=== PATIENT | female | born 1985 | race Caucasian/White ===

== ENCOUNTER 2020-04-19 12:48 | Outpatient (RCR) | payer MEDICARE, SELFPAY | END 2020-05-11 23:59 | disposition home or self-care (01) | LOC: SPT 12:48 | PROVIDERS: PCP Nurse Practitioner Family; Referring Provider Nurse Practitioner Family; Visit Provider Nurse Practitioner Family | DX: R32 Unspecified urinary incontinence (principal) | CPT/HCPCS: 97110; 97161; 97530 ==

== ENCOUNTER 2020-05-12 06:00 | Outpatient (RCR) | payer MEDICARE, MEDICAID, SELFPAY | END 2020-06-10 23:59 | disposition home or self-care (01) | LOC: SPT 06:00 | PROVIDERS: PCP Nurse Practitioner Family; Referring Provider Nurse Practitioner Family; Visit Provider Nurse Practitioner Family | DX: R32 Unspecified urinary incontinence (principal) | CPT/HCPCS: 97110 ==

== ENCOUNTER → 2021-04-19 15:21 | Outpatient (BNVA) | payer MEDICARE, MEDICAID, SELFPAY | PROVIDERS: PCP Nurse Practitioner Family; Visit Provider Nurse Practitioner Family | DX: Z13.6 Encounter for screening for cardiovascular disorders (principal); I10 Essential (primary) hypertension; Z79.899 Other long term (current) drug therapy; E55.9 Vitamin D deficiency, unspecified | CPT/HCPCS: 80053; 80061; 81003; 82306; 83036; 84443; 85025 ==

== ENCOUNTER → 2021-12-21 13:19 | Outpatient (BNVA) | payer MEDICARE, MEDICAID, SELFPAY | PROVIDERS: PCP Nurse Practitioner; Visit Provider Nurse Practitioner | DX: Z34.90 Encounter for supervision of normal pregnancy, unspecified, unspecified trimester (principal); N92.6 Irregular menstruation, unspecified | CPT/HCPCS: 81000; 84443; 85025 ==

== ENCOUNTER → 2022-01-19 14:46 | Outpatient (BNVA) | payer MEDICARE, MEDICAID, SELFPAY | PROVIDERS: PCP Nurse Practitioner; Visit Provider Nurse Practitioner Women's Health | DX: O09.892 Supervision of other high risk pregnancies, second trimester (principal); O09.522 Supervision of elderly multigravida, second trimester; O09.212 Supervision of pregnancy with history of pre-term labor, second trimester; Z3A.20 20 weeks gestation of pregnancy; O26.892 Other specified pregnancy related conditions, second trimester; R32 Unspecified urinary incontinence | CPT/HCPCS: 76805; 80307; 81025; 84315; 85027; 86592; 86762; 86803; 86850; 86900; 87086; 87340; 87491; 87591; 87624; 87661; 87806 ==

== ENCOUNTER → 2022-02-19 13:49 | Outpatient (BNVA) | payer MEDICARE, MEDICAID, SELFPAY | PROVIDERS: PCP Nurse Practitioner; Visit Provider Nurse Practitioner Women's Health | DX: O09.90 Supervision of high risk pregnancy, unspecified, unspecified trimester (principal); Z3A.00 Weeks of gestation of pregnancy not specified; Z79.899 Other long term (current) drug therapy | CPT/HCPCS: 76817; 82950; 84315 ==

== ENCOUNTER → 2022-02-27 12:17 | Outpatient (BNVA) | payer MEDICARE, MEDICAID, SELFPAY | PROVIDERS: PCP Nurse Practitioner; Visit Provider Obstetrics & Gynecology | DX: Z34.80 Encounter for supervision of other normal pregnancy, unspecified trimester (principal) | CPT/HCPCS: 76817 ==

== ENCOUNTER → 2022-03-16 12:30 | Outpatient (BNVA) | payer MEDICARE, MEDICAID, SELFPAY | PROVIDERS: PCP Nurse Practitioner; Visit Provider Obstetrics & Gynecology | DX: Z36.86 Encounter for antenatal screening for cervical length (principal); Z79.899 Other long term (current) drug therapy | CPT/HCPCS: 76817; 84315; 87086 ==

== ENCOUNTER → 2022-04-13 15:59 | Outpatient (BNVA) | payer MEDICARE, MEDICAID, SELFPAY | PROVIDERS: PCP Nurse Practitioner; Visit Provider Nurse Practitioner Women's Health | DX: O09.90 Supervision of high risk pregnancy, unspecified, unspecified trimester (principal); O09.529 Supervision of elderly multigravida, unspecified trimester; O09.30 Supervision of pregnancy with insufficient antenatal care, unspecified trimester; Z3A.00 Weeks of gestation of pregnancy not specified | CPT/HCPCS: 84315; 85025 ==

== ENCOUNTER 2022-04-27 01:25 | Outpatient (CLI) | payer MEDICARE, MEDICAID, SELFPAY ==
[2022-04-27] VITALS (8 sets, daily range): BP systolic 104–113; BP diastolic 64–69; PULSE 63–82; RESP 16; BMI 23.8
--- NOTE | 2022-04-27 02:03 | PC.NURSE ---
This nurse at bedside at this time. Asked when contractions began and pt stated at 2300 last night and she did not drink any water or take any Tylenol prior to coming to the hospital. This nurse inquired about where the pain is and for the pt to rate her pain on a scale of zero to ten. Pt states her pain comes and goes above her right hip and rates it 0/10. This nurse asked if the pt was having pain and she replied yes and again rated it 0/10. She also stated her stomach felt like a basketball on the drive to the hospital. This nurse updated pt on plan of care and pt didn't have any questions.
[2022-04-27 02:04] LABS: Bilirubin Urine Neg (Negative); Blood Urine Neg (Negative); Glucose Urine UA Norm (Normal); Ketones Urine 1+ (Negative); Leukocyte Esterase Urine 2+ (Negative); Nitrate Urine Negative (Negative); Protein Urine Neg (Negative); Urine Appearance Clear (CLEAR); Urine Color Yellow (Yellow); Urobilinogen Urine Norm (Negative); pH Urine 6 (5-7)
[2022-04-27 02:29] LABS: Bacteria Urine 2+ /hpf; RBC Urine 0-4 /hpf (0-2); Squamous Epithelial Cell Urine 40-55 /hpf (0-5)
[2022-04-27] MEDS: lactated ringers 1,000 ML 75 ML IV (02:44)
[2022-04-27] MEDS: ceFAZolin 2,000 MG in sodium chloride 0.9% (plus) 50 ML 100 MG IV (02:45)
--- NOTE | 2022-04-27 03:36 | P.TNLD_ITS ---
OB L&D Triage Visit Information: Date of evaluation: 04/27/22 Comments/Additional reason(s) for visit: 36yo female at 34.2 wk IUP with JUDE 06/06/22 in c/o riht side pain onset 2300 on 04/26/22. States abdomen tightens up but denies contractions. Pt admits to good FM, denies LOF or vaginal bleeding. Discussed labor and contractions. EFM-Cat 1 with irreg contractions, Cervix closed/th/high. UA- +Seth Esterase, +1 ketones, +2 Bacteria, pt treated for UTI and encouraged to increase fluids. Pt states she has visit today. Advised her to tell DrLoulou she was treated today for UTI. Evaluation: monitor accelerations: Present 15x15 station: -4 Laboratory results: Laboratory Tests 04/27/22 01:50 Urine Color Yellow Urine Appearance Clear Urine pH 6 Ur Specific Gravit y 1.020 Urine Protein Neg Urine Glucose (UA) Norm Urine Ketones 1+ H Urine Blood Neg Urine Nitrate Negative Urine Bilirubin Neg Urine Urobilinogen Norm Ur Leukocyte Cecille ase 2+ H Urine RBC 0-4 H Urine WBC 5-10 H Ur Squamous Epith Cells 40-55 H Amorphous Sediment Not Reportable Urine Bacteria 2+ H Vital signs: Vital Signs - 24 hr 04/27/22 01:25 04/27/22 01:25 04/27/22 01:46 Pulse Rate 82 Respiratory Rate 16 16 Blood Pressure 108/66 04/27/22 02:03 04/27/22 02:18 04/27/22 02:34 Pulse Rate 75 63 68 Respiratory Rate Blood Pressure 107/67 108/69 112/64 04/27/22 02:48 04/27/22 03:03 04/27/22 03:18 Pulse Rate 70 64 76 Respiratory Rate Blood Pressure 113/67 107/68 104/67 Care JUDE Calculator Estimated Delivery Date Method Current WG Current Estimate 06/06/22 Ultrasound #1 34w 2d Other Estimates 06/22/22 LMP (Uncertain) 32w 0d Specific Issues/Plans * LATE CARE at 20 wks * UNKNOWN LMP * HX PPROM at 28-30 weeks; delivered at 28-30 weeks * URINARY INCONTINENCE Final Diagnosis Final Diagnosis (1) Late care affecting : Plan: A. 34.2 wk IUP with irreg contractions UTI P. IV hydration with 2gm Ancef DC to home, and pt to keep apptmt. Status: Acute Code(s): O09.30 - Supervision of with insufficient care, unspecified trimester (2) History of premature rupture of membranes (PROM) in previous , currently : Status: Acute Code(s): O09.299 - Supervision of with other poor reproductive or obstetric history, unspecified trimester (3) Supervision of high-risk : Status: Acute Code(s): O09.90 - Supervision of high risk , unspecified, unspecified trimester Coding Level of Care Code Acute Code for Chg Fwd Diagnoses Late care affecting O09.30 History of premature rupture of membranes (PROM) in previous , currently O09.299 Supervision of high-risk O09.90
== END 2022-04-27 03:29 | disposition home or self-care (01) ==
LOC: OPOB 01:38 → OBGYN 01:38
PROVIDERS: PCP Nurse Practitioner; Visit Provider Obstetrics & Gynecology
DX: O09.30 Supervision of pregnancy with insufficient antenatal care, unspecified trimester (principal); Z3A.34 34 weeks gestation of pregnancy
CPT/HCPCS: 12345; 59025; 81001; 84315; 99211; J0690; J7120

== ENCOUNTER 2022-05-03 00:55 | Inpatient (IN) | payer MEDICARE, MEDICAID, SELFPAY ==
[2022-05-03] VITALS (49 sets, daily range): BP systolic 86–136; BP diastolic 52–78; PULSE 66–107; RESP 15–18; TEMP 36.3–36.9; O2SAT 94–95
[2022-05-03 01:19] LABS: Nitrazine Paper, PH Positive
[2022-05-03 01:26] LABS: Basophils % 0.4 %; Eosinophils # 0.1 10^3/uL (0.0-0.8); Eosinophils % 0.9 %; Hematocrit 35.4 % (37.0-47.0); Hemoglobin 11.7 g/dL (11.5-15.3); Lymphocytes # 1.8 10^3/uL (0.8-4.8); Lymphocytes % 18.7 %; Mean Corpuscular HGB Conc 33.1 g/dL (30.0-36.0); Mean Corpuscular Hemoglobin 28.9 pg (28.0-34.0); Mean Corpuscular Volume 87.4 fl (81-99); Mean Platelet Volume 10.4 fL (7.4-10.4); Monocytes # 0.8 10^3/uL (0.2-0.9); Monocytes % 8.4 %; Neutrophils # 6.65 10^3/uL (1.8-7.7); Neutrophils % 70.6 %; Nucleated Red Blood Cells % 0 %; Platelet Count 279 10^3/cmm (130-400); Red Blood Count 4.05 10^6/uL (4.1-5.3); Red Cell Distribution Width 12.8 % (12.1-15.1); White Blood Count 9.4 10^3/uL (4.0-10.0)
[2022-05-03] MEDS: dextrose 5%-lactated ringers 1,000 ML 125 ML IV (01:54)
[2022-05-03] MEDS: ampicillin 2,000 MG in sodium chloride 0.9% (plus) 50 ML 100 MG IV (01:54)
[2022-05-03] MEDS: ampicillin 1,000 MG in sodium chloride 0.9% (plus) 50 ML 100 MG IV ×2 (05:49→09:44)
--- NOTE | 2022-05-03 08:33 | PM.OPHPUD ---
Labor & Delivery H&P Update Date of Procedure: May 04, 2022 Date H&P Performed: 04/27/22 H&P update information: I have reviewed H&P completed within last 30 days, I have examined patient prior to procedure and Changes to prior documentation as noted here ( premature rupture of membranes) Admission Diagnosis: Intrauterine at 35 weeks +1-day. premature rupture of membranes. labor. Planned procedure: Spontaneous vaginal delivery
[2022-05-03] MEDS: oxytocin 30 UNIT/500 ML BAG IV ×2 (08:38→09:11)
[2022-05-03] MEDS: betamethasone susp 6 mg/mL 5 mL 12 MG IM (08:38)
[2022-05-03] MEDS: fentaNYL 50 mcg/mL INJ 2mL IVP (11:43)
--- NOTE | 2022-05-03 14:36 | P.PCNOB_ITS ---
Delivery Note: Date of delivery: May 04, 2022 Pre-delivery diagnoses: Intrauterine at 35 weeks +1-day. premature rupture of membranes. labor. Procedure: Spontaneous vaginal delivery Delivering Physician: Janes Martinez MD Delivery: The patient was noted to be complete and pushing, she was placed in the dorsal lithotomy position, prepped and draped in the usual sterile fashion for a vaginal delivery. Pt. Noted NOT to have epidural anesthesia and a pudendal block was performed. At 1303 the patient delivered a viable at 35 weeks female infant weighing 2105 g with scores of 7 and 8 at one and five minutes, respectively. The vertex was delivered spontaneously over intact perineum. The patient was asked to push and the head delivered spontaneously in the ASHLEY position, over an intact perineum. A nuchal cord was checked and 1 noted, and relieved around head as necessary. The anterior shoulder delivered easily and the posterior shoulder followed. The remainder of the was easily delivered and the oropharynx and nasopharynx was bulb suctioned. The was noted to have spontaneous cry and spontaneous movement of all four extremities. The cord was clamped x 2 and cut and noted to have 2 arteries and one vein. The was passed to the mother's abdomen where nursing and customer pricing manager personnel were in attendance. Cord blood sample was then obtained. The placenta delivered intact spontaneously and the uterus was explored. 20 units of Pitocin was placed in the IV bag to firm the uterus. Examination of the cervix and vaginal vault did not reveal any lacerations. A vaginal pack was then placed. Examination of the perineum showed no lacerations were noted. The vaginal pack was then removed. The patient tolerated this procedure well, and recovered in L&D with her infant or note if taken to NICU. All sponge and needle counts were correct. History History History 3 Term 1 0 Miscarriages/Ectopic 1 Living Children 1 Coding Level of Care Code Acute Code for Chg Fwd
[2022-05-03] MEDS: ibuprofen 800 mg tablet PO ×2 (15:23→20:43)
--- NOTE | 2022-05-03 16:34 | PC.NURSE ---
[place] Hotline notified by this RN concerns of parents caring for independently at home. Mother has stated to this RN repeatedly that she cannot remember how to feed or burp infant. This RN educated parents. Mother still seems unsure of how to care for . Hotline call made for potential resources for education that parents could use to care for . ROMEL MONTERROSO
[2022-05-03] MEDS: docusate sodium 100 mg Capsule PO (20:43)
[2022-05-04 03:03] VITALS: BP 105/63; PULSE 73; RESP 16; TEMP 36.7; O2SAT 96
[2022-05-04 03:17] LABS: Hematocrit 31.9 % (37.0-47.0); Hemoglobin 10.6 g/dL (11.5-15.3); Mean Corpuscular HGB Conc 33.2 g/dL (30.0-36.0); Mean Corpuscular Hemoglobin 29.1 pg (28.0-34.0); Mean Corpuscular Volume 87.6 fl (81-99); Mean Platelet Volume 10.7 fL (7.4-10.4); Platelet Count 300 10^3/cmm (130-400); Red Blood Count 3.64 10^6/uL (4.1-5.3); Red Cell Distribution Width 12.9 % (12.1-15.1); White Blood Count 18.2 10^3/uL (4.0-10.0)
--- NOTE | 2022-05-04 07:00 | PC.NURSE ---
Shift report given to RN by Elisa MONTERROSO. Upon rounding mother questioned about why she did not go to nursery to feed or visit infant throughout night. Mother states she was tired, but did not go to sleep until 2200. Mother verbalized she was aware that she was allowed to visit infant in the nursery. Mother verbalizes understanding that she may visit infant throughout day if baby remained in nursery. ROMEL MONTERROSO
[2022-05-04 10:03] VITALS: BP 106/70; PULSE 71; RESP 15; TEMP 36.6
[2022-05-04] MEDS: prenatal vitamin Capsule 1 CAP PO (10:04)
[2022-05-04] MEDS: docusate sodium 100 mg Capsule PO (10:04)
[2022-05-04] MEDS: ibuprofen 800 mg tablet PO ×2 (10:04→15:23)
[2022-05-04 15:26] VITALS: BP 106/64; PULSE 86; RESP 16; TEMP 36.7; O2SAT 97
--- NOTE | 2022-05-04 16:52 | PC.NURSE ---
Addendum entered by Jennie Romo RN 05/04/22 16:55: 05/03/22 0700 This rn prompted patient to shower due to heavy body odor noted. Patient in shower for 45 minutes. This RN rounded to room and patient states that the shower felt nice because she has not showered in 1.5 weeks This nurse asked if patient had running water in home. Patient stated to this RN that she does, she just did not want to make herself do it. (shower) RN educated patient importance of hygiene. Patient verbalized understanding. AR RN Original Note: This rn prompted patient to shower due to heavy body odor noted. Patient in shower for 45 minutes. This RN rounded to room and patient states that the shower felt nice because she has not showered in 1.5 weeks This nurse asked if patient had running water in home. Patient stated to this RN that she does, she just did not want to make herself do it. (shower) RN educated patient importance of hygiene. Patient verbalized understanding. AR KRISS
--- NOTE | 2022-05-04 19:25 | PC.NURSE ---
During bedside report with this nurse and Jaycob Romo pt was asked if she remembered how to feed the baby a bottle when it was time. Pt responded with how to burp baby. When Jaycob Romo RN stated that is how you burp the baby, do you remember how to feed the baby? The pt, after thinking for a couple minutes said she did not remember. The pt was reeducated at that time and stated she understands.
[2022-05-04 22:20] VITALS: BP 118/64; PULSE 77; RESP 16; TEMP 36.7
[2022-05-05] VITALS (14 sets, daily range): BP systolic 92–114; BP diastolic 51–70; PULSE 62–88; RESP 15–18; TEMP 36.6–36.8; O2SAT 91–100
[2022-05-05] MEDS: famotidine 20 mg/2 mL INJ IVP (07:53)
[2022-05-05] MEDS: metoclopramide 5 mg/mL SDV 2 mL 10 MG IVP (07:53)
[2022-05-05] MEDS: citric acid-sodium citrate 30 mL UDC PO (07:53)
--- NOTE | 2022-05-05 08:01 | ANES.PREANE2 ---
Pre-Anesthetic Assessment Height/Weight: Height 1.68 m Weight 67.585 kg Temp Pulse Resp BP Pulse Ox O2 Del Method 98.0 F 84 16 114/60 97 05/05/22 05:19 05/05/22 05:19 05/05/22 05:19 05/05/22 05:19 05/04/22 15:26 05/05/22 05:19 Preop Diagnosis: vaginal delivery Tubal Ligation Familial anesthetic complications: None Was Beta Theresa taken within 24 hours: N/A Was Clonidine taken within 24 hours: N/A Last intake: > 8hrs Social No alcohol and No tobacco Exam alert, oriented x 3, clear to auscultation bilaterally and regular rate & rhythm Airway Mallampati: Class II Dentition: full Anesthetic Plan ASA status: 2 Anesthesia: General Risk of > 500 ml blood loss (7ml/kg in children): No Medications/Allergies Home Medications Medication Instructions Recorded Confirmed Last Taken Type prenat.vits,jeffery,zlt-[id number] 1 tab PO DAILY 01/19/22 05/03/22 1 Day Ago History ~05/02/22 Allergies Allergy/AdvReac Type Severity Reaction Status Date / Time No Known Allergies Allergy Verified 05/03/22 00:57 Current Medications Generic Name Dose Route Start Last Admin Trade Name Freq PRN Reason Stop Dose Admin Docusate Sodium 100 mg 05/03/22 18:00 05/04/22 22:45 Docusate Sodium 100 Mg Capsule PO Not Given BID TREY Oxytocin 30 unit in 500 mls @ 1 mls/hr 05/03/22 08:15 05/03/22 21:04 Pitocin IV Infused .Q24H TREY Titration Protocol 1 MILLIUNIT/MIN Oxytocin 30 unit in 500 mls @ 1 mls/hr 05/03/22 08:30 05/03/22 21:04 Pitocin IV Infused .Q24H TREY Titration Protocol 1 MILLIUNIT/MIN Ibuprofen 800 mg 05/03/22 15:12 05/04/22 22:45 Ibuprofen 800 Mg Tablet PO Not Given TID TREY Multivit/Folic Acid/Iron 1 cap 05/04/22 09:00 05/04/22 10:04 Vitamin Capsule PO 1 cap DAILY TREY Administration PFSH Anesthesia Medical History No pertinent past medical history neghx: htn,dm,thyroid,dvt/pe PCP: Claudia Ramos Urinary Incontinence Vitamin D deficiency Surgical History History of calculus of gallbladder (~2008) removed stones Hx of dilation and curettage (~2012) SAB Family History Grandmother Diabetes Maternal and Paternal Grandfather Diabetes Maternal and Paternal Stroke Paternal Heart disease Paternal Family/Other Cervical cancer Maternal Aunt--dx age unknown Denies family history of Colon cancer Ovarian cancer Breast cancer Hypertension Uterine cancer Female Reproductive History : 3 Data Anesthesia 05/04/22 03:00 Short CBC 05/04/22 Range/Units 03:00 WBC 18.2 H (4.0-10.0) 10^3/uL Hgb 10.6 L (11.5-15.3) g/dL Hct 31.9 L (37.0-47.0) % MCV 87.6 (81-99) fl Plt Count 300 (130-400) 10^3/cmm Cardiac Studies: No Data to Display
[2022-05-05] MEDS: lactated ringers 1,000 ML 999 ML IV (08:02)
--- NOTE | 2022-05-05 09:04 | P.OP_ITS ---
Operative Report Date of procedure: May 05, 2022 Pre-op diagnosis: Preop Diagnosis vaginal delivery Desire permanent sterilization Post-op diagnosis: Same as above Procedure done: bilateral partial salpingectomy Specimens removed/disposition: The right fallopian tube segment Surgeon: Janes Martinez MD Estimated blood loss (mL): 5 Findings: Enlarged uterus Procedure: The patient was informed of the risks and benefits of the procedure. Risks included but were not limited to bleeding, infection, and injury to internal organs. The patient was counseled on the risk of sterilization failure. The patient was informed that in the event a occurs the risk of ectopic is increased. The patient was counseled that bilateral tubal ligation is intended to be permanent and nonreversible. She was also counseled that there are nonpermanent forms of control available to her. The patient expressed understanding of the risks involved, all questions were answered, and the patient consented to the procedure. After assuring informed consent. The patient was taken to the operating room and general anesthesia administered. Time-out procedure was performed. A small, transverse, infraumbilical skin incision was made with a scalpel, and the incision was carried down through the underlying fascia until the peritoneum was identified and entered. The left fallopian tube was identified, brought into the incision and grasped with a Geneva clamp. The tube was then followed out to the fimbria. An avascular midsection of the fallopian tube was grasped with a Jamil clamp and brought into a knuckle. Using the [employer] Fine Fusion device the falopian tube was clamped, seal and cut. The specimen was sent to pathology. Excellent hemostasis was noted, and the tube was returned to the abdomen. The same procedure was performed on the opposite fallopian tube. The fascia was then closed with O-Vicryl in a single layer. The skin was closed with 3-O Monocryl in a subcuticular fashion. The patient tolerated the procedure well. Needle and sponge counts were correct times 3.
--- NOTE | 2022-05-05 10:10 | ANE.PACU2 ---
Inpatient post-anesthesia follow up: Airway intact: Yes Vital signs: Temperature 98.0 F Pulse Rate 84 Respiratory Rate 16 Blood Pressure 114/60 Pulse Oximetry 97 Oxygen Delivery Me thod Room Air Oxygen Flow Rate Fraction of Inspir ed Oxygen Hydration adequate: Yes Nausea and vomiting: No Pain level: 1 Mental status: Baseline
[2022-05-05] MEDS: HYDROcodone-acetaminophen 5-325 mg Tablet PO (14:01)
[2022-05-05] MEDS: ketorolac 30 mg/mL INJ IVP ×2 (16:00→22:40)
[2022-05-05] MEDS: docusate sodium 100 mg Capsule PO (17:11)
--- NOTE | 2022-05-06 00:55 | PC.NURSE ---
While rounding pt was found to be asleep in bed holding infant. This nurse woke pt, swaddled baby and placed in her crib at bedside. Pt was reeducated on safe sleep and verbalized understanding.
[2022-05-06 04:15] VITALS: BP 98/60; PULSE 58; RESP 16; TEMP 36.7
[2022-05-06 05:59] LABS: Hematocrit 31.3 % (37.0-47.0); Hemoglobin 9.9 g/dL (11.5-15.3); Mean Corpuscular HGB Conc 31.6 g/dL (30.0-36.0); Mean Corpuscular Hemoglobin 28.7 pg (28.0-34.0); Mean Corpuscular Volume 90.7 fl (81-99); Mean Platelet Volume 10.1 fL (7.4-10.4); Platelet Count 276 10^3/cmm (130-400); Red Blood Count 3.45 10^6/uL (4.1-5.3); Red Cell Distribution Width 13.2 % (12.1-15.1)
[2022-05-06] MEDS: prenatal vitamin Capsule 1 CAP PO (10:36)
[2022-05-06] MEDS: ibuprofen 800 mg tablet PO (10:36)
[2022-05-06] MEDS: docusate sodium 100 mg Capsule PO (10:38)
--- NOTE | 2022-05-06 11:41 | P.DS_ITS ---
Discharge Providers INDUSTRIAL WASTE TREATMENT TECHNICIAN Date of Admission: 05/03/22 00:55 Date of Discharge: 05/06/22 Attending Provider at Admission: Janes Martinez MD Attending Provider at Discharge: Janes Martinez MD Primary INDUSTRIAL WASTE TREATMENT TECHNICIAN: Janes Martinez MD Primary Care Provider: Claudia Ramos APN Reason for Visit Reason for Visit: possible srom Hospital Course Hospital Course 36-year-old with intrauterine at 35 weeks. Came to labor and delivery complaining of rupture of membranes. premature rupture of membranes was confirmed. Patient was admitted, and she rapid progress to have a spontaneous vaginal delivery without complication. and observation was uneventful. She had requested permanent sterilization. bilateral partial salpingectomy was performed. Ambulating without difficulty. Tolerating diet well. She is afebrile hemodynamically stable day 2, postoperative day 1. She was counseled regarding pelvic rest for 6 weeks (no sex, no tampons, no vaginal douches). Return to the emergency room if any fever, increased bleeding or pain. Information Peripartum Data: Infant Delivery Method: Vaginal Physical Exam Narrative: GA; alert and oriented x 3 HEENT: normal Breasts: engorged Nipples - skin intact Lungs; clear to auscultation Heart: regular rhythm, no murmurs. Abd: Appropriately tender. BS+. Uterine fundus below umbilicus. No Fundal Tenderness. Perineum: normal lochia. Extremities: no edema, no cyanosis, no tenderness. History History History 3 Term 1 0 Miscarriages/Ectopic 1 Living Children 1 Discharge Data Studies Completed and Pending Laboratory Results WBC 18.2 10^3/uL (4.0-10.0) H 05/04/22 03:00 RBC 3.64 10^6/uL (4.1-5.3) L 05/04/22 03:00 Hgb 10.6 g/dL (11.5-15.3) L 05/04/22 03:00 Hct 31.9 % (37.0-47.0) L 05/04/22 03:00 MCV 87.6 fl (81-99) 05/04/22 03:00 MCH 29.1 pg (28.0-34.0) 05/04/22 03:00 MCHC 33.2 g/dL (30.0-36.0) 05/04/22 03:00 RDW 12.9 % (12.1-15.1) 05/04/22 03:00 Plt Count 300 10^3/cmm (130-400) 05/04/22 03:00 MPV 10.7 fL (7.4-10.4) H 05/04/22 03:00 Neut % (Auto) 70.6 % 05/03/22 01:19 Lymph % (Auto) 18.7 % 05/03/22 01:19 [place] % (Auto) 8.4 % 05/03/22 01:19 Eos % (Auto) 0.9 % 05/03/22 01:19 Baso % (Auto) 0.4 % 05/03/22 01:19 Neut # (Auto) 6.65 10^3/uL (1.8-7.7) 05/03/22 01:19 Lymph # (Auto) 1.8 10^3/uL (0.8-4.8) 05/03/22 01:19 [place] # (Auto) 0.8 10^3/uL (0.2-0.9) 05/03/22 01:19 Eos # (Auto) 0.1 10^3/uL (0.0-0.8) 05/03/22 01:19 Baso # (Auto) 0.0 10^3/uL (0.0-0.1) 05/03/22 01:19 Nucleated RBC % (auto) 0 % 05/03/22 01:19 Nucleated RBCs # 0.0 /100WBC 05/03/22 01:19 Vitals Last Vital Signs Temp 97.8 F 05/04/22 10:03 Pulse 71 05/04/22 10:03 Resp 15 05/04/22 10:03 BP 106/70 05/04/22 10:03 Pulse Ox 96 05/04/22 03:03 O2 Del Method 05/04/22 10:03 Discharge Plan Discharge Patient Disposition: Home Condition: Stable Prescriptions: New hydrocodone-acetaminophen 5-325 mg tablet 1 tab PO Q4H PRN (Reason: pain) Qty: 10 0RF docusate sodium [Colace] 100 mg capsule 100 mg PO BID Qty: 60 0RF ibuprofen 800 mg tablet 800 mg PO TID PRN (Reason: pain) Qty: 60 0RF acetaminophen 325 mg capsule 325 mg PO Q4H PRN (Reason: fever or pain) Qty: 60 0RF ferrous sulfate [Iron (ferrous sulfate)] 325 mg (65 mg iron) tablet 325 mg PO BID Qty: 60 0RF Continued prenat.vits,jeffery,ytb-[id number] Tablet 1 tab PO DAILY Discharge Orders: Discharge Order (Routine); Ordered 05/06/22 Ordered By: Janes Martinez Discharge Diet: Advance as tolerated and Usual diet Discharge Activity: Limit activity as instructed Patient Instructions: Caring for Your Baby (GEN), Bleeding (GEN), Vaginal Delivery (GEN), Your [place]'s Appearance (GEN), Opioid Safety Activity Restrictions/Additional Instructions: 1. Please call [facility] on next working day to make your postop visit in 2 weeks and appointment in 6 weeks. 2. Please stay home until you come back to the clinic on first post-operative check up. 3. Please follow instructions on your medications CAREFULLY. 4. If you have abdominal incision, do not cover it unless dressing is necessary because of drainage. OK to shower, but avoid bath. Leave steri-strips until they fall off. If they are still on one week after surgery, you may remove them. 5. If you had vaginal surgery or vaginal repair, Dr. Martinez may instruct you to take SITZ bath. 6. Yellow, blood tinged odorous vaginal discharge is usually normal after hysterectomy or vaginal surgeries. 7. No sexual intercourse, tampons, or douches until you are completely released from the post-operative care. 8. Avoid constipation by eating right and maybe using some Metamucil or Milk of Magnesia. 9. All prescription refills are given during the working hours. Please do no wait till it runs out. Call the clinic at [phone] before your medication runs out. The clinic will get in touch with your doctor to prescribe medications if necessary. 10. Please remain within 40 mile radius from our hospital because emergencies do happen now and then during the post-operative period. 11. If you have stairs at home, take one step at a time slowly and minimize the number of trips. It helps to stay in one floor for the next few days. No lifting except what you can lift by one hand until you are released from the post-operative care. 12. Driving is discouraged until you are well healed. It may be 3-4 weeks before you feel strong enough to drive. You should be able to turn and look through the rear window without pain and you should be able to push the brake pedal very hard without pain before you drive. No fast rules, but SAFETY should be your primary concern. DO NOT drive if you are on sedating medications such as narcotics. 13. Call the clinic (during working hours) to make urgent appointment or go to the Emergency room, if any of the following occurs: i. Vaginal bleeding becomes heavy, more than a period. ii. Incision becomes red and sore, or drains pus. iii. Your temperature is over 100.4 or you have chill. iv. IV site becomes red and swollen (a little ``knot?? is usually OK) v. Persistent nausea and vomiting vi. Persistent constipation or diarrhea vii. Rash or allergic reaction to medications. Discharge Attestations INDUSTRIAL WASTE TREATMENT TECHNICIAN Time Spent in Discharge Care*: greater than 30 min Coding Level of Care Code Acute Code for Chg Fwd
[2022-05-06 13:45] VITALS: BP 127/72; PULSE 67; RESP 16; TEMP 36.4
== END 2022-05-06 13:45 | disposition home or self-care (01) | DRG 798 ==
LOC: OBGYN 13:18 → OPOB 05-05 06:01 → OBGYN 05-05 06:01
PROVIDERS: Admitting Provider Obstetrics & Gynecology; PCP Nurse Practitioner; Visit Provider Obstetrics & Gynecology
PROC: 0UB70ZZ Excision of Bilateral Fallopian Tubes, Open Approach (ICD-10-PCS; CPT 58605; principal; 2022-05-05 08:15)
DX: O42.013 Preterm premature rupture of membranes, onset of labor within 24 hours of rupture, third trimester (principal); Z37.0 Single live birth; O69.81X0 Labor and delivery complicated by cord around neck, without compression, not applicable or unspecified; Z30.2 Encounter for sterilization; Z3A.35 35 weeks gestation of pregnancy; Z87.891 Personal history of nicotine dependence
CPT/HCPCS: 36415; 59025; 59409; 83986; 85025; 85027; 88302; 96372; 96374; 96376; 99211; J0290; J0330; J0702; J1100; J1885; J2250; J2405; J2590; J2704; J2765; J3010; J3490; J7120; J7121

== ENCOUNTER 2022-12-11 12:24 | Observation (INO) | payer MEDICARE, MEDICAID, SELFPAY ==
[2022-12-11] VITALS (14 sets, daily range): BP systolic 95–118; BP diastolic 54–75; PULSE 44–76; RESP 12–20; TEMP 36.2–36.6; O2SAT 92–100; BMI 20.1
[2022-12-11] MEDS: sodium chloride 0.9% 1,000 ML 30 ML IV (09:41)
[2022-12-11] MEDS: scopolamine 1.5 Patch 1 PATCH TRANSDERMA (09:41)
[2022-12-11 09:47] LABS: OR HCG Qualitative Urine Negative (Negative)
--- NOTE | 2022-12-11 09:47 | W.PM.OPSUD ---
Surgery/Procedure H&P Update DATE OF PROCEDURE: December 11, 2022 DATE H&P PERFORMED: 12/03/22 H&P UPDATE INFORMATION: I have reviewed H&P completed within last 30 days, I have examined patient prior to procedure and No changes to prior documentation PREOP DIAGNOSIS: Cystocele stage II, mixed urinary incontinence PLANNED PROCEDURE: Operation Date: 12/11/22 11:05 Proposed Procedures p [id number] Anterior Colporrhaphy(Not Applicable) - Janes Martinez [place] s [id number] Single Incision Midurethral Sling(Not Applicable) - Janes Martinez MD
--- NOTE | 2022-12-11 10:13 | ANES.PREANE2 ---
Pre-Anesthetic Assessment Height/Weight: Height 1.68 m Weight 56.699 kg Temp Pulse Resp BP Pulse Ox O2 Del Method 97.4 F L 74 18 118/61 92 Room Air 12/11/22 09:34 12/11/22 09:34 12/11/22 09:34 12/11/22 09:34 12/11/22 09:34 12/11/22 09:36 Preop Diagnosis: Cystocele stage II, mixed urinary incontinence Operation Date: 12/11/22 11:05 Proposed Procedures p [id number] Anterior Colporrhaphy(Not Applicable) - Janes Martinez MD s [id number] Single Incision Midurethral Sling(Not Applicable) - Janes Martinez MD Familial anesthetic complications: None Was Beta Theresa taken within 24 hours: N/A Was Clonidine taken within 24 hours: N/A Last intake: Intake Last Liquid Date 12/10/22 Last Liquid Time 22:50 Last Solid Date 12/10/22 Last Solid Time 21:45 Social No alcohol and No tobacco Exam alert, oriented x 3, clear to auscultation bilaterally and regular rate & rhythm Airway Mallampati: Class I Dentition: full Anesthetic Plan ASA status: 1 Anesthesia: General Risk of > 500 ml blood loss (7ml/kg in children): No Medications/Allergies Home Medications Medication Instructions Recorded Confirmed Last Taken Type prenat.vits,jeffery,hfc-[id number]-vnlji 1 tab PO DAILY 01/19/22 12/11/22 12/09/22 History mirabegron 50 mg tablet,extended 50 mg PO DAILY #30 tabs 09/17/22 12/11/22 12/09/22 Rx release 24 hr (Myrbetriq) Allergies Allergy/AdvReac Type Severity Reaction Status Date / Time No Known Allergies Allergy Verified 12/11/22 09:28 Current Medications Generic Name Dose Route Start Last Admin Trade Name Freq PRN Reason Stop Dose Admin Sodium Chloride 1,000 mls @ 30 mls/hr 12/11/22 09:30 12/11/22 09:41 Sodium Chloride 0.9% IV 12/12/22 09:29 30 mls/hr .Q24H TREY Administration PFSH Anesthesia Medical History No pertinent past medical history neghx: htn,dm,thyroid,dvt/pe PCP: Claudia Ramos Urinary Incontinence Vitamin D deficiency Surgical History History of calculus of gallbladder (~2008) removed stones Hx of dilation and curettage (~2012) SAB Family History Grandmother Diabetes Maternal and Paternal Grandfather Diabetes Maternal and Paternal Stroke Paternal Heart disease Paternal Family/Other Cervical cancer Maternal Aunt--dx age unknown Denies family history of Colon cancer Ovarian cancer Breast cancer Hypertension Uterine cancer Female Reproductive History Date of last menstrual period: 12/07/22 Data Anesthesia Cardiac Studies: No Data to Display
[2022-12-11 10:15] LABS: Add Urine Microscopic? YES; Bilirubin Urine Neg (Negative); Blood Urine Neg (Negative); Glucose Urine UA Norm (Normal); Ketones Urine Negative (Negative); Leukocyte Esterase Urine Negative (Negative); Nitrate Urine Negative (Negative); Protein Urine Neg (Negative); Urine Appearance Hazy (CLEAR); Urine Color Yellow (Yellow); Urobilinogen Urine Norm (Negative); pH Urine 6 (5-7)
[2022-12-11 10:21] LABS: Add Urine Culture? No; Mucus Urine 3+ /hpf; RBC Urine RARE /hpf (0-2); WBC Urine 0-4 /hpf (0-5)
[2022-12-11] MEDS: ceFAZolin 2,000 MG in sodium chloride 0.9% (plus) 50 ML 100 MG IV (10:21)
[2022-12-11 10:25] LABS: Basophils % 0.7 %; Eosinophils # 0.1 10^3/uL (0.0-0.8); Eosinophils % 1.7 %; Hematocrit 42.6 % (36-47); Lymphocytes # 1.6 10^3/uL (0.8-4.8); Lymphocytes % 30.2 %; Mean Corpuscular HGB Conc 32.2 g/dL (30-55); Mean Corpuscular Hemoglobin 28.8 pg (27-33); Mean Corpuscular Volume 89.7 fl (85-98); Mean Platelet Volume 9.7 fL (7.4-10.4); Monocytes # 0.3 10^3/uL (0.2-0.9); Monocytes % 5.6 %; Neutrophils # 3.32 10^3/uL (1.8-7.7); Neutrophils % 61.6 %; Nucleated Red Blood Cells % 0 %; Platelet Count 344 10^3/cmm (157-399); Red Blood Count 4.75 10^6/uL (3.85-5.65); Red Cell Distribution Width 12.6 % (12.1-15.1); White Blood Count 5.39 10^3/uL (3.29-11.43)
[2022-12-11 10:45] LABS: Alanine Aminotransferase 11 U/L (0-33); Albumin Level 4.8 g/dL (3.5-5.2); Alkaline Phosphatase 76 U/L (35-105); Anion Gap 12.1 (5-19); Aspartate Amino Transferase 12 U/L (0-32); Blood Urea Nitrogen 11 mg/dL (6-20); Calcium 9.1 mg/dL (8.5-10.5); Carbon Dioxide 29 mmol/L (22-29); Chloride 103 mmol/L (98-107); Globulin 2.8 g/dL (1.3-4.6); Glomerular Filtration Rate 113.1 mL/min (90-130); Glucose 107 mg/dL (65-115); Osmolality Calculated 290 mOsm/kg (285-295); Potassium 4.1 mmol/L (3.5-5.1); Sodium 140 mmol/L (136-145); Total Bilirubin 0.4 mg/dL (0.15-1.2); Total Protein 7.6 g/dL (6.6-8.7)
[2022-12-11] MEDS: lidocaine-epi 2% 20 mL INJ INJECTION (11:30)
--- NOTE | 2022-12-11 11:47 | P.OP_ITS ---
Operative Report Date of procedure: December 11, 2022 Pre-op diagnosis: Cystocele stage II, stress urinary incontinence Post-op diagnosis: Same as above Procedure done: Anterior colporrhaphy augmented with allograft. Single incision mid urethral sling. Cystoscopy Implants: Coloplast Altis sling Specimens removed/disposition: None Surgeon: Janes Martinez MD Estimated blood loss (mL): 75 IV fluids (mL): 700 Urine output (mL): 200 Complications: None Procedure: After obtaining informed consent, the patient was taken to the operating room and placed in the supine position, given general anesthesia, and prepped and draped in sterile fashion. The abdomen, vulva and vagina were prepped and draped in a sterile manner. A time out procedure was performed. The anterior vaginal mucosa beneath the midurethra was infiltrated with 0.5% Marcaine with epinephrine. A vertical midline incision was made beneath the midurethra, nearly 1.5 cm length. Careful submucosal dissection was performed bilaterally up to the interior portion of the inferior pubic ramus. The insert ion of adductor longus tendon on the patient?s pubic ramus was identified as reference land lianna. Palpated the notch along the internal edge of ischiopubic ramus where the adductor longus tendon and the inferior pubic ramus meet. The Altis single incision sling (SIS) was selected. Then the needle of the SIS inserted aiming at the location of this notch. One of the integrated self- fixating tips place onto the needle by sliding it over the end of the needle. The needle/sling assembly was inserted toward the location of identified reference notch making sure that the flat of the handle is perpendicular to the desired path. The needle was tracked along the posterior surface of the ischiopubic ramus until the midline lianna on the mesh is approximately at the midline position under the urethra. The needle was removed and the same was repeated on the contralateral side until the appropriate sling tension under the urethra was achieved ensuring that the mesh lays flat. The needle was removed an d vaginal incision was closed in a running interlocking fashion with 2-0 Vicryl. The vaginal mucosa was then injected in the midline with normal saline. The vaginal mucosa was scored in the midline with the Bovie approximately 1 cm medial to the urethral meatus to 1 cm distal to the cervix. This vaginal mucosa was then undermined and then incised in the midline with the Metzenbaum scissors. The lateral aspects of the vaginal mucosa were then grasped with the Allis clamps and the vaginal mucosa was then dissected off the underlying fascia with the Metzenbaum scissors. Again, there was noted to be quite a bit of oozing at the incision, which was controlled with cautery. After adequate dissection was performed, bilaterally. A Coloplast dermis allograft modified at time of application to fit spacea, 3 x 3 cm piece . The Coloplast allograft placed in front of cystocele ready to be implanted facing the vagina mucosa. Suture is placed at distal end of graft and placed towards vaginal cuff. Final suture is placed on proximal portion of the graft to complete the placement overlying the bladder. Then Interrupted vertical mattress sutures of 0 Vicryl were used to elevate the cystocele superiorly. The excessive vaginal mucosa was then trimmed with the Metzenbaum scissors and the vaginal mucosa was then reapproximated in the running interlocking fashion with 2-0 Vicryl. Then the Fried catheter was removed and cystoscope was inserted. The bladder was filled with sterile water. Complete evaluation of the bladder mucosa was performed noting no lacerations, dimpling, tears, bleeding of the mucosa or muscular layers. Both ureteral orifices were identified. Prompt excretion of urine from both ureteral orifices was noted. Cystoscope was withdrawn. The Fried catheter was replaced. Excellent hemostasis was obtained. A vaginal pack is placed overnight as postoperative support for the vaginal tissues after graft placement and closure of vaginal incisions. Sponge, lap, needle, and instrument counts were correct times three. The patient was taken to the recovery room, awake and in stable condition.
--- NOTE | 2022-12-11 12:30 | ANE.PACU2 ---
Inpatient post-anesthesia follow up: Airway intact: Yes Vital signs: Temperature 97.1 F Pulse Rate 45 Respiratory Rate 16 Blood Pressure 104/66 Pulse Oximetry 100 Oxygen Delivery Me thod Room Air Oxygen Flow Rate Fraction of Inspir ed Oxygen Hydration adequate: Yes Nausea and vomiting: No Pain level: 1 Mental status: Baseline
[2022-12-11] MEDS: dextrose 5%-lactated ringers 1,000 ML 125 ML IV ×2 (15:16→23:53)
[2022-12-11] MEDS: ketorolac 30 mg/mL INJ IVP ×2 (15:16→21:22)
[2022-12-11] MEDS: docusate sodium 100 mg Capsule PO (21:22)
[2022-12-12] MEDS: ketorolac 30 mg/mL INJ IVP (03:23)
[2022-12-12 05:00] VITALS: BP 98/54; PULSE 60; RESP 16; TEMP 36.6; O2SAT 99
[2022-12-12 06:50] LABS: Hematocrit 37.9 % (36-47); Mean Corpuscular HGB Conc 32.2 g/dL (30-55); Mean Corpuscular Hemoglobin 28.5 pg (27-33); Mean Corpuscular Volume 88.6 fl (85-98); Mean Platelet Volume 9.7 fL (7.4-10.4); Platelet Count 318 10^3/cmm (157-399); Red Blood Count 4.28 10^6/uL (3.85-5.65); Red Cell Distribution Width 12.6 % (12.1-15.1); White Blood Count 10.72 10^3/uL (3.29-11.43)
[2022-12-12 09:00] VITALS: BP 103/67; PULSE 60; RESP 17; TEMP 36.7; O2SAT 99
[2022-12-12] MEDS: docusate sodium 100 mg Capsule PO (09:00)
--- NOTE | 2022-12-12 10:38 | P.DS_ITS ---
Discharge Providers [employer]IO [employer]ENCE TROUBLE [employer]ER Date of Admission: 12/11/22 12:24 Date of Discharge: 12/12/22 Attending Provider at Admission: Janes Martinez MD Attending Provider at Discharge: Janes Martinez MD Primary Care Provider: Claudia Ramos APN Reason for Visit Reason for Visit: [id number] Hospital Course Hospital Course Mrs. Martinez 37-year-old female G3, P2 with a history of mixed urinary incontinence and cystocele stage II, admitted for planned anterior colporrhaphy augmented with allograft and single incision mid urethral sling. The procedure was performed without complication. Overnight observation was uneventful. She is afebrile and hemodynamically stable postoperative day 1. Tolerating diet well. Ambulating without difficulty. She was counseled regarding pelvic rest for 6 weeks (no sex, no tampons, no vaginal douches). Return to the emergency room if any fever, increased bleeding or pain. Physical Exam Narrative: GA: Alert and oriented ?3. HEENT: WNL. Heart: Regular rate and rhythm. Lungs: Clear to auscultation bilaterally. Abdomen: Bowel sounds present, nontender. [employer]: Spotting bleeding. Extremities: No edema, no cyanosis, no calves pain. Urinary Catheter Management: Morrison: Cath Placed During This Visit: yes Urinary Catheter Date of Insertion: 12/11/22 Urinary Catheter Time of Insertion: 10:52 History History History 3 Term 1 1 Miscarriages/Ectopic 1 Living Children 2 Discharge Data Studies Completed and Pending Laboratory Results WBC 10.72 10^3/uL (3.29-11.43) 12/12/22 06:30 RBC 4.28 10^6/uL (3.85-5.65) 12/12/22 06:30 Hgb 12.20 g/dL (11.27-16.99) 12/12/22 06:30 Hct 37.9 % (36-47) 12/12/22 06:30 MCV 88.6 fl (85-98) 12/12/22 06:30 MCH 28.5 pg (27-33) 12/12/22 06:30 MCHC 32.2 g/dL (30-55) 12/12/22 06:30 RDW 12.6 % (12.1-15.1) 12/12/22 06:30 Plt Count 318 10^3/cmm (157-399) 12/12/22 06:30 MPV 9.7 fL (7.4-10.4) 12/12/22 06:30 Neut % (Auto) 61.6 % 12/11/22 09:48 Lymph % (Auto) 30.2 % 12/11/22 09:48 [place] % (Auto) 5.6 % 12/11/22 09:48 Eos % (Auto) 1.7 % 12/11/22 09:48 Baso % (Auto) 0.7 % 12/11/22 09:48 Neut # (Auto) 3.32 10^3/uL (1.8-7.7) 12/11/22 09:48 Lymph # (Auto) 1.6 10^3/uL (0.8-4.8) 12/11/22 09:48 [place] # (Auto) 0.3 10^3/uL (0.2-0.9) 12/11/22 09:48 Eos # (Auto) 0.1 10^3/uL (0.0-0.8) 12/11/22 09:48 Baso # (Auto) 0.0 10^3/uL (0.0-0.1) 12/11/22 09:48 Nucleated RBC % (auto) 0 % 12/11/22 09:48 Nucleated RBCs # 0.0 /100WBC 12/11/22 09:48 Sodium 140 mmol/L (136-145) 12/11/22 09:48 Potassium 4.1 mmol/L (3.5-5.1) 12/11/22 09:48 Chloride 103 mmol/L (98-107) 12/11/22 09:48 Carbon Dioxide 29 mmol/L (22-29) 12/11/22 09:48 Anion Gap 12.1 (5-19) 12/11/22 09:48 BUN 11 mg/dL (6-20) 12/11/22 09:48 Creatinine 0.6 mg/dL (0.5-0.9) 12/11/22 09:48 GFR Calculation 113.1 mL/min (90-130) 12/11/22 09:48 Glucose 107 mg/dL (65-115) 12/11/22 09:48 Calculated Osmolality 290 mOsm/kg (285-295) 12/11/22 09:48 Calcium 9.1 mg/dL (8.5-10.5) 12/11/22 09:48 Total Bilirubin 0.4 mg/dL (0.15-1.2) 12/11/22 09:48 AST 12 U/L (0-32) 12/11/22 09:48 ALT 11 U/L (0-33) 12/11/22 09:48 Alkaline Phosphatase 76 U/L (35-105) 12/11/22 09:48 Total Protein 7.6 g/dL (6.6-8.7) 12/11/22 09:48 Albumin 4.8 g/dL (3.5-5.2) 12/11/22 09:48 Globulin 2.8 g/dL (1.3-4.6) 12/11/22 09:48 Urine Color Yellow (Yellow) 12/11/22 09:35 Urine Appearance Hazy (CLEAR) A 12/11/22 09:35 Urine pH 6 (5-7) 12/11/22 09:35 Ur Specific [place] 1.020 (1.005-1.030) 12/11/22 09:35 Urine Protein Neg (Negative) 12/11/22 09:35 Urine Glucose (UA) Norm (Normal) 12/11/22 09:35 Urine Ketones Negative (Negative) 12/11/22 09:35 Urine Blood Neg (Negative) 12/11/22 09:35 Urine Nitrate Negative (Negative) 12/11/22 09:35 Urine Bilirubin Neg (Negative) 12/11/22 09:35 Urine Urobilinogen Norm mg/dL (Negative) 12/11/22 09:35 Ur Leukocyte Esterase Negative (Negative) 12/11/22 09:35 Urine RBC Rare /hpf (0-2) 12/11/22 09:35 Urine WBC 0-4 /hpf (0-5) H 12/11/22 09:35 Ur Squamous Epith Cells 10-15 /hpf (0-5) H 12/11/22 09:35 Amorphous Sediment Not Reportable 12/11/22 09:35 Urine Bacteria None /hpf (NONE) 12/11/22 09:35 Urine Mucus 3+ /hpf 12/11/22 09:35 Urine HCG, Qual Negative (Negative) 12/11/22 09:18 Blood Type O Positive 12/11/22 09:48 Rho(D) Type Positive 12/11/22 09:48 Antibody Screen Negative 12/11/22 09:48 Vitals Last Vital Signs Temp 98.1 F 12/12/22 09:00 Pulse 60 12/12/22 09:00 Resp 17 12/12/22 09:00 BP 103/67 12/12/22 09:00 Pulse Ox 99 12/12/22 09:00 O2 Del Method Room Air 12/12/22 09:00 Results Labs OB ([facility]): Blood Type O Positive 12/11/22 Antibody Screen Negative 12/11/22 Hct 37.9 % (36-47) 12/12/22 Hgb 12.20 g/dL (11.27-16.99) 12/12/22 Rho(D) Type Positive 12/11/22 Plt Count 318 10^3/cmm (157-399) 12/12/22 Hep Bs Antigen Non-reactive (Nonreactive) 01/19/22 Hepatitis C Antibody Non-reactive (Nonreactive) 01/19/22 Rubella IgG Antibody > 500.0 IU/mL (0.0-10.0) H 01/19/22 RPR Nonreactive (Nonreactive) 01/19/22 HIV 1&2 Ab & HIV 1 Ag Non-reactive (Non-Reactiv) 01/19/22 TSH 2.72 uIU/mL (0.27-4.20) 12/21/21 Gest Glucose Tolerance 103 mg/dL 02/19/22 Hemoglobin A1c 5.0 % (4.0-6.0) 04/19/21 HCG, Qual Positive (Negative) H 01/19/22 Urine Opiates Screen Negative ng/mL (Negative) 01/19/22 Ur Barbiturates Screen Negative ng/mL (Negative) 01/19/22 Ur Phencyclidine Scrn Negative ng/mL (Negative) 01/19/22 Ur Amphetamines Screen Negative ng/mL (Negative) 01/19/22 U Benzodiazepines Scrn Negative ng/mL (Negative) 01/19/22 Urine Cocaine Screen Negative ng/mL (Negative) 01/19/22 U Marijuana (THC) Screen Negative ng/mL (Negative) 01/19/22 Micro Urine Specimen 03/16/22 Pap Smear Interpret See note 01/19/22 Discharge Plan Discharge Patient Disposition: Home Condition: Good Prescriptions: New hydrocodone-acetaminophen 5-325 mg tablet 1 tab PO Q4H PRN (Reason: pain) Qty: 10 0RF acetaminophen 325 mg capsule 325 mg PO Q4H PRN (Reason: fever or pain) Qty: 60 0RF ibuprofen 800 mg tablet 800 mg PO TID PRN (Reason: pain) Qty: 60 0RF nitrofurantoin macrocrystal 100 mg capsule 100 mg PO BID 5 Days Qty: 10 0RF Rx Instructions: must administer with a meal/food Continued prenat.vits,jeffery,[id number] Tablet 1 tab PO DAILY Myrbetriq 50 mg tablet extended release 24 hr 50 mg PO DAILY Qty: 30 2RF Discharge Orders: Discharge Order (Routine); Ordered 12/12/22 Ordered By: Janes Martinez Referrals: Janes Martinez MD [Physician] - 2 weeks (if PVR > 150 ml follow up Saturday to DC morrison catheter) Discharge Diet: Usual diet Discharge Activity: Limit activity as instructed Patient Instructions: Opioid Safety, Bladder Sling for Women (GEN), Anterior Vaginal Repair (GEN) Activity Restrictions/Additional Instructions: 1. Please call [facility] on next working day to make your post-operative appointment in 2 weeks. If discharge home with morrison catheter followup at the clinic Saturday. 2. Please stay home until you come back to the clinic on first post- hospatilization check up. 3. Please follow instructions on your medications CAREFULLY. 4. If you have abdominal incision, do not cover it unless dressing is necessary because of drainage. OK to shower, but avoid bath. Leave steri-strips until they fall off. If they are still on one week after surgery, you may remove them. 5. If you had vaginal surgery or vaginal repair, Dr. Martinez may instruct you to take SITZ bath. 6. Yellow, blood tinged odorous vaginal discharge is usually normal after hysterectomy or vaginal surgeries. 7. No SEXUAL INTERCOURSE, tampons, or douches until you are completely released from the post-operative care. 8. Avoid constipation by eating right and maybe using some Metamucil or Milk of Magnesia. 9. All prescription refills are given during the working hours. Please do no w ait till it runs out. Call the clinic at [phone] before your medication runs out. The clinic will get in touch with your doctor to prescribe medications if necessary. 10. Please remain within 40 mile radius from our hospital because emergencies do happen now and then during the post-operative period. 11. If you have stairs at home, take one step at a time slowly and minimize the number of trips. It helps to stay in one floor for the next few days. No lifting except what you can lift by one hand until you are released from the post-operative care. 12. Driving is discouraged until you are well healed. It may be 3-4 weeks before you feel strong enough to drive. You should be able to turn and look through the rear window without pain and you should be able to push the brake pedal very hard without pain before you drive. No fast rules, but SAFETY should be your primary concern. DO NOT drive if you are on sedating medications such as narcotics. 13. Call the clinic (during working hours) to make urgent appointment or go to the Emergency room, if any of the following occurs: i. Vaginal bleeding becomes heavy, more than a period. ii. Incision becomes red and sore, or drains pus. iii. Your TEMPERATURE is over 100.4F or you have chill. iv. IV site becomes red and swollen (a little ``knot?? is usually OK) v. Persistent nausea and vomiting vi. Persistent constipation or diarrhea vii. Rash or allergic reaction to medications. 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
[2022-12-12 12:21] VITALS: BP 109/69; PULSE 62; RESP 17; TEMP 36.6; O2SAT 100
[2022-12-12 13:34] VITALS: BP 117/76; PULSE 70; RESP 16; TEMP 36.7; O2SAT 99
== END 2022-12-12 13:34 | disposition home or self-care (01) ==
LOC: OBGYN 12:24
PROVIDERS: Admitting Provider Obstetrics & Gynecology; PCP Nurse Practitioner; Visit Provider Obstetrics & Gynecology
PROC: 0JQC0ZZ Repair Pelvic Region Subcutaneous Tissue and Fascia, Open Approach (ICD-10-PCS; CPT 57240; principal; 2022-12-11 10:55)
PROC: (CPT 57288; 2022-12-11 10:55)
PROC: 0TJB8ZZ Inspection of Bladder, Via Natural or Artificial Opening Endoscopic (ICD-10-PCS; CPT 52000; 2022-12-11 10:55)
DX: N81.10 Cystocele, unspecified (principal); N39.3 Stress incontinence (female) (male)
CPT/HCPCS: 57240; 57267; 57288; 36415; 51702; 51798; 80053; 81001; 81025; 84703; 85025; 85027; 86850; 86900; C1713; C1762; G0378; J0690; J1100; J1885; J2405; J2704; J2710; J3010; J3490; J7030; J7121; Q9968

== ENCOUNTER → 2024-08-19 15:38 | Outpatient (BNVA) | payer MEDICARE, MEDICAID, SELFPAY | PROVIDERS: PCP Nurse Practitioner Family; Visit Provider Nurse Practitioner Family | DX: Z00.00 Encounter for general adult medical examination without abnormal findings (principal); Z13.6 Encounter for screening for cardiovascular disorders; Z79.899 Other long term (current) drug therapy; E55.9 Vitamin D deficiency, unspecified | CPT/HCPCS: 80053; 80061; 81003; 82306; 83036; 84443; 85025; 87077; 87086; 87184 ==